=== PATIENT | female | born 1990 | race Asian ===

== ENCOUNTER → 2021-03-01 09:31 | Outpatient (CLI) | payer OTHER, SELFPAY ==
--- NOTE | 2021-03-01 09:34 | DI.US.S_ITS ---
PROCEDURE: US OB <= 14 WEEKS FETUS INDICATIONS: INITIAL VIABILITY DATING OUTSIDE/PRIOR DATING DATA: Last menstrual period (LMP): December 29, 2020. LMP-based estimated date of delivery (LELIA): October 05, 2021. First dating scan (date): March 01, 2021. Estimated date of delivery (LELIA) from first dating scan: October 10, 2021. The calculations are made using the ultrasound LELIA of October 10, 2021. TECHNIQUE: Real-time scanning was performed of the fetus and maternal pelvic organs, with image documentation. Endovaginal scanning was also performed to better visualize the fetus and maternal ovaries. COMPARISON: None. FINDINGS: Embryo: Mean crown-rump length measures 1.65 cm, compatible with an 8 week, 1 day gestation Heart rate: 171 beats per minute. Maternal organs: Ovaries within normal limits. A thick-walled lesion is seen within the right ovary, likely reflecting a corpus luteum. IMPRESSION: Single live intrauterine gestation as detailed above. We strive to produce accurate, complete, and clear reports of imaging services. To assist us in improving patient care, this report was composed using standard report templates and voice recognition software. Therefore, it may contain abnormal punctuation, insertions and/or omissions. Occasional wrong-word or sound-alike substitutions may occur. Though we review the report and make efforts to correct it, we do recommend that the report be read carefully in proper context to recognize any text inaccuracies. Dictated by: Rick Gastelum M.D. on 03/01/2021 at 10:37 Approved by: Rick Gastelum M.D. on 03/01/2021 at 10:44
[2021-03-01 12:10] LABS: Add Manual Diff / Slide Review NO; Basophils Absolute Auto 0 /uL (0-100); Basophils Percent Auto 0.3 % (0-2); Eosinophils Absolute Auto 0 /uL (0-450); Eosinophils Percent Auto 0.3 % (2-4); Hematocrit 34.8 % (36-46); Lymphocytes Absolute Auto 1400 /uL (1100-4500); Mean Corpuscular HGB Conc 34.6 % (30-36); Mean Corpuscular Hemoglobin 30.9 PG (26-34); Mean Corpuscular Volume 89.4 fL (80-100); Monocytes Absolute Auto 600 /uL (0-900); Neutrophils Absolute Auto 6800 /uL (1500-7000); Neutrophils Percent Auto 76.4 % (50-75); Platelet Count 333 X10^3/uL (150-400); Red Blood Cell Count 3.89 X10^6/uL (4.0-5.2); Red Cell Distribution Width 12.6 % (11.6-14.8); White Blood Cell Count 8.9 X10^3/uL (4.5-11.0)
[2021-03-01 12:14] LABS: Appearance Urine UA CLEAR; Bilirubin Urine UA NEGATIVE (NEGATIVE); Color Urine UA YELLOW; Glucose Urine UA NEGATIVE (Negative); Ketones Urine UA NEGATIVE (NEGATIVE); Leukocyte Esterase Urine UA NEGATIVE (NEGATIVE); Nitrite Urine UA NEGATIVE (Negative); Occult Blood Urine UA TRACE-LYSED (Negative); Protein Urine UA NEGATIVE (Negative); Specific Gravity Urine UA 1.015 (1.000-1.035); Urobilinogen Urine UA 0.2 E.U./dL (0.2)
[2021-03-01 13:01] LABS: Hemoglobin A1C% w Est Avg Glu 5.4 % (4.0-6.0)
[2021-03-02 09:06] LABS: RPR Screen Non Reactive (Non Reactive)
[2021-03-02 11:57] LABS: Varicella IgG Antibody <135 index (Immune >165)
[2021-03-02 17:28] LABS: HIV 1 & 2 Ab/Ag 4th Gen Combo NEGATIVE (NEGATIVE); Hep C Virus Ab w/Reflex Quant NEGATIVE s/c (NEGATIVE); Hepatitis B Surface Antigen NEGATIVE s/c (NEGATIVE); Rubella Antibody IgG 55.6 IU/mL (>15)
== END ==
PROVIDERS: Referring Provider Obstetrics & Gynecology; Visit Provider Obstetrics & Gynecology
DX: Z34.81 Encounter for supervision of other normal pregnancy, first trimester (principal); Z3A.08 8 weeks gestation of pregnancy
CPT/HCPCS: 36415; 76801; 76817; 80055; 81003; 83036; 86787; 86803; 86850; 86900; 86901; 87086; 87389

== ENCOUNTER → 2021-04-25 16:35 | Outpatient (CLI) | payer BC, SELFPAY ==
[2021-04-27 20:22] LABS: Estriol, Free 1.06 ng/mL (.); Inhibin A, Dimeric 167.69 pg/mL (.); Inhibin A, MoM 1.02 (.); Maternal Ethnicity Other (.); Maternal Weight 140 lbs (.); Number of Fetuses No (.); OSBR Risk 1 IN 5251 (.); Results Report (.); Test Results *Screen Negative* (.); hCG, MoM 1.56 (.); hCG, Serum 58677 mIU/mL (.)
== END ==
PROVIDERS: Referring Provider Obstetrics & Gynecology; Visit Provider Obstetrics & Gynecology
DX: Z34.82 Encounter for supervision of other normal pregnancy, second trimester (principal); Z3A.16 16 weeks gestation of pregnancy
CPT/HCPCS: 36415; 82105; 82677; 84702; 86336

== ENCOUNTER → 2021-05-25 14:03 | Outpatient (CLI) | payer BC, SELFPAY ==
--- NOTE | 2021-05-25 14:05 | DI.US.S_ITS ---
PROCEDURE: US OB >= 14 WEEKS FETUS INDICATIONS: ANATOMY SCAN OUTSIDE/PRIOR DATING DATA: Last menstrual period (LMP): 12/29/2020. LMP-based estimated date of delivery (LELIA): 10/05/2021. First dating scan (date and location): 03/01/2021 at . Estimated date of delivery (LELIA) from first dating scan: 10/10/2021. The calculations are made using the ultrasound LELIA of 10/10/2021. TECHNIQUE: Real-time scanning was performed of the fetus, with image documentation and biometric measurements. Endovaginal scanning: Not performed COMPARISON: None. FINDINGS: General: A single living intrauterine gestation is present. Presentation: Variable. Placenta: Placental position is posterior , without previa. Amniotic fluid index: 12.9 cm, normal range is 5-24 cm. Single deepest vertical pocket is 4.5 cm. heart rate: 158 beats per minute. Maternal cervical canal: 4.7 cm long. Normal lower limit is 2.5 cm. biometrics: Biparietal diameter: 19 weeks 6 days. Head circumference: 20 weeks 2 days Abdominal circumference: 20 weeks 4 days Femur length: 20 weeks 0 day Clinically estimated gestational age: 20 weeks 2 days Composite gestational age from present scan: 20 weeks 1 day Estimated weight and percentile: 344 gm; 45% Anatomic survey: Neuro: Ventricles are non-dilated at less than 10 mm. Cisterna magna is normal at 3-11 mm. Cerebellum is normal in size and morphology. Nuchal skin fold: Normal at less than 6 mm between 14-21 weeks gestational age. Face: Nose and lips, facial profile are normal. Spine: No evidence for spina bifida. Heart: 4-chambered heart is present, with normal ventricular outflow tracts. Echogenic focus in the left ventricle. Diaphragm: Diaphragm is intact. Stomach: Left-sided stomach is present. Kidneys: No hydronephrosis. Normal is less than 5 mm in 2nd trimester, less than 7 mm in 3rd trimester. Cord: 3-vessel cord has orthotopic insertion. Bladder: Normal in size. Extremities: All 4 extremities identified. IMPRESSION: 1. A single living intrauterine gestation with appropriate interval growth. 2. Echogenic focus in left ventricle. As an isolated finding, it is likely of no clinical significance. Please correlate with other clinical information. 3. Otherwise normal anatomic survey. We strive to produce accurate, complete, and clear reports of imaging services. To assist us in improving patient care, this report was composed using standard report templates and voice recognition software. Therefore, it may contain abnormal punctuation, insertions and/or omissions. Occasional wrong-word or sound-alike substitutions may occur. Though we review the report and make efforts to correct it, we do recommend that the report be read carefully in proper context to recognize any text inaccuracies. Dictated by: Mariano Mack M.D. on 05/25/2021 at 17:38 Approved by: Mariano Mack M.D. on 05/25/2021 at 17:42
== END ==
PROVIDERS: Referring Provider Obstetrics & Gynecology; Visit Provider Obstetrics & Gynecology
DX: Z34.82 Encounter for supervision of other normal pregnancy, second trimester (principal); Z3A.20 20 weeks gestation of pregnancy
CPT/HCPCS: 76811; 87491; 87591

== ENCOUNTER → 2021-05-25 16:56 | Outpatient (CLI) | payer BC, SELFPAY ==
[2021-05-25 21:22] LABS: Urine N gonorrhoeae NOT DETECTED
[2021-05-25 22:39] LABS: Urine Chlamydia NOT DETECTED
== END ==
PROVIDERS: Visit Provider Obstetrics & Gynecology
DX: Z34.82 Encounter for supervision of other normal pregnancy, second trimester (principal); Z3A.20 20 weeks gestation of pregnancy
CPT/HCPCS: 87491; 87591

== ENCOUNTER → 2021-06-22 16:23 | Outpatient (CLI) | payer BC, SELFPAY ==
[2021-06-22 17:50] LABS: Hematocrit 30.4 % (36-46); Hemoglobin 10.6 g/dL (12.0-16.0)
[2021-06-22 18:06] LABS: GTT (PREG) 1 Hour PP 50gm Dose 183 mg/dL (76-139)
== END ==
PROVIDERS: Referring Provider Obstetrics & Gynecology; Visit Provider Obstetrics & Gynecology
DX: Z34.82 Encounter for supervision of other normal pregnancy, second trimester (principal); Z3A.26 26 weeks gestation of pregnancy
CPT/HCPCS: 36415; 82950; 85014; 85018

== ENCOUNTER → 2021-07-03 09:59 | Outpatient (CLI) | payer BC, SELFPAY ==
[2021-07-03 11:07] LABS: Glucose Fasting Gestational 101 mg/dL (76-95)
[2021-07-03 12:40] LABS: Glucose 1 Hour Gest 258 mg/dL (76-180)
[2021-07-03 13:30] LABS: Glucose Tol Interp,Gestational INTERPRETATION
[2021-07-03 14:35] LABS: Glucose 3 Hour Gest 165 mg/dL (76-140)
[2021-07-03 14:39] LABS: Glucose 2 Hour Gest 170 mg/dL (76-155)
== END ==
PROVIDERS: Referring Provider Obstetrics & Gynecology; Visit Provider Obstetrics & Gynecology
DX: O99.810 Abnormal glucose complicating pregnancy (principal); Z3A.24 24 weeks gestation of pregnancy
CPT/HCPCS: 36415; 82951; 82952

== ENCOUNTER 2021-08-16 03:24 | Observation (INO) | payer BC, SELFPAY ==
[2021-08-16] MEDS: LACTATED RINGERS 1,000 ML 1000 ML IV ×2 (04:19→05:41)
[2021-08-16 04:37] LABS: Add Manual Diff / Slide Review NO; Basophils Absolute Auto 0 /uL (0-100); Basophils Percent Auto 0.3 % (0-2); Eosinophils Absolute Auto 0 /uL (0-450); Eosinophils Percent Auto 0.4 % (2-4); Hematocrit 29.2 % (36-46); Hemoglobin 10.1 g/dL (12.0-16.0); Lymphocytes Absolute Auto 700 /uL (1100-4500); Mean Corpuscular HGB Conc 34.6 % (30-36); Mean Corpuscular Hemoglobin 31.6 PG (26-34); Mean Corpuscular Volume 91.3 fL (80-100); Monocytes Absolute Auto 900 /uL (0-900); Monocytes Percent Auto 10.9 % (3-14); Neutrophils Absolute Auto 6600 /uL (1500-7000); Neutrophils Percent Auto 80.4 % (50-75); Platelet Count 232 X10^3/uL (150-400); Red Cell Distribution Width 12.9 % (11.6-14.8); White Blood Cell Count 8.2 X10^3/uL (4.5-11.0)
[2021-08-16 05:18] LABS: COVID19 -Nasal RAPID Negative (Negative)
[2021-08-16] MEDS: NIFEdipine 10 MG CAPSULE PO ×3 (06:11→06:55)
[2021-08-18 10:23] LABS: Strep Grp B PCR NEG for Grp B Strep
== END 2021-08-16 08:03 | disposition home or self-care (01) ==
PROVIDERS: Admitting Provider Obstetrics & Gynecology; Referring Provider Obstetrics & Gynecology; Visit Provider Obstetrics & Gynecology
DX: O47.03 False labor before 37 completed weeks of gestation, third trimester (principal); O24.419 Gestational diabetes mellitus in pregnancy, unspecified control; Z3A.32 32 weeks gestation of pregnancy; Z20.822 Contact with and (suspected) exposure to COVID-19
CPT/HCPCS: 59025; 59050; 85025; 87086; 87635; 87653; 96360; C9803; G0378; G0379

== ENCOUNTER → 2021-08-18 13:57 | Outpatient (CLI) | payer BC, SELFPAY ==
--- NOTE | 2021-08-18 17:10 | DIAB.GDA ---
Initial Gestational Diabetes Assessment Name: Karen Briscoe V Date: 08/18/21 Time: 2-310p Dx: Gestational Diabetes Provider: Loretta LELIA: 10/10/21 Weeks: 32 Karen presents for initial visit with her spouse, Arminda.+FH of DM with father and PMH of PCOS and prediabetes. HgA1c in February 5.4% (WNL). Endorses previous visit with Sarah MOBLEY/LOCO for PDM. Finds diet changes difficult primarily due to difficulty reducing rice consumption. Palestinian culture and often consumes 2c rice at each meal. Currently taking Metformin 500mg BID. Very worried about potential for insulin. States she does not want to take insulin and then have to cont taking . has questions today about impact of GDM on baby and risk of DM for baby. Endorses limited knowledge about what GDM is. Reports recent IV hydration in ED due to inadequate fluid intake recently. RD cannot find this event in EMR. Has been working on fluid intake since. Diet Recall: wake 730a ; sleep 11p-12a waiting 2 hr after iron supplement to eat in the morning 1130a: 2c rice, meat +/- coffee with vanilla creamer 3p: mac and cheese and crackers 7p: 2c rice, meat/fish, veggies Beverages: 80oz water, coconut water (24g CHO), 12oz gatorade (22g CHO) Anthropometrics: Ht: 5' Wt: 159# last OB visit Prepregnancy wt: 140# Physical Activity: No program Self-Monitoring Blood Glucose: Checking 4 x per day: FBG, pre 3p mini meal, and 2 hr pc dinner. Denies any hyperglycemia currently. Did not bring SMB[facility] records to appt. Diabetes Medications: Metformin 500mg BID Pertinent Labs: screen 183 H ; OGTT: 101H, 258 H, 170 H, 165 H Nutrition Rx: Carbohydrates: Daily: 180g Meal: 45-60g lunch and dinner; 30-45g breakfast Snack: 15-30g Nutrition Diagnosis: Altered nutrition related lab value r/t GDM dx aeb recent OGTT Excessive CHO intake r/t nutrition knowledge deficit aeb diet recall of 90g CHO at meals and beverage choices Physical inactivity r/t worries about safety with exercising while aeb pt report Intervention: This participant was very receptive. Provided appropriate educational handouts. Discussed the following topics: GDM pathophysiology and impact of hyperglycemia on mom and baby Risk for T2DM for mom and baby in the future Ways to reduce risk T2DM HgA1c Plate Method, meal timing, carb counting, pairing macronutrients and spreading out CHO for better BG management Blood glucose goals (FBG: <95 and 2 hour <120 mg/dL); importance of checking 4x per day (FBG and pc) Impact of macronutrients on blood glucose Recommended servings for carbohydrates at meals and snacks Brainstormed appropriate meal plan based on her food preferences Discussed medication management: some women need insulin during but not Role of physical activity and following provider guidelines for safety-- enc her to discuss further with OB if she is worried, but generally 30 mins activity is recc Goals: Avoid sugar sweetened beverages Switch to SF creamer Check BG 2 hours after 3pm meal Measure rice portion Follow-up: RADHA ADAN follow-up in one week for BG and goal check-in after OB appt. States she feels the changes discussed today are not overwhelming and seems motivated to make lifestyle changes. Roma Mann RDN, [facility] Certified Diabetes Care and Merchandise Clerk T: [phone] F: [phone] [email or web address] Thank you for this referral
== END ==
PROVIDERS: Referring Provider Obstetrics & Gynecology; Visit Provider Obstetrics & Gynecology
DX: O24.415 Gestational diabetes mellitus in pregnancy, controlled by oral hypoglycemic drugs (principal); Z3A.32 32 weeks gestation of pregnancy; Z71.3 Dietary counseling and surveillance
CPT/HCPCS: 97802

== ENCOUNTER → 2021-08-24 16:46 | Outpatient (CLI) | payer BC, SELFPAY ==
--- NOTE | 2021-08-24 17:54 | DIAB.GDFU ---
Follow-up Gestational Diabetes Assessment Name: Karen Briscoe V Date: 08/24/21 Time: 5-515pp Dx: Gestational Diabetes Provider: Loretta LELIA: 10/10/21 Karen presents with spouse for follow-up regarding GDM dx. States she has reduced rice to 1c, cut out sugar beverages, and has been having mostly in goal BG. Some elevations at evening meal, which seem r/t candy or fruit immediately after dinner. 3 eating occurrences per day. Endorses feeling hungry. Did encourage small freq meals. Added morning snack as recommended last visit. Overall, doing very well with nutrition changes. Anthropometrics: Ht: 5' Wt: 159# last OB visit Prepregnancy wt: 140# Physical Activity: No program Self-Monitoring Blood Glucose: 03/31 elevated FBG. 05/01 elevated pc lunch. 08/28 elevated pc dinner. Late morning meals when she was not working last week resulted in some days only 2 pc readings. Checked after 3p meal/snack: 113, 109, 121 H. Date Pre Post Pre Post Pre Post HS 08/18 89 106 147 08/19 89 102 158 08/20 86 92 129 08/21 92 110 138 08/22 86 110 125 137 08/23 90 106 130 125 08/24 98 111 120 Diabetes Medications: Metformin 500mg BID Pertinent Labs: screen 183 H ; OGTT: 101H, 258 H, 170 H, 165 H Nutrition Rx: Carbohydrates: Daily: 180g Meal: 45-60g lunch and dinner; 30-45g breakfast Snack: 15-30g Nutrition Diagnosis: Altered nutrition related lab value r/t GDM dx aeb recent OGTT Excessive CHO intake r/t nutrition knowledge deficit aeb diet recall of 90g CHO at meals and beverage choices- improved Physical inactivity r/t worries about safety with exercising while aeb pt report - no change Intervention: This participant was very receptive. Provided appropriate educational handouts. Discussed the following topics: Recent blood sugar results and impact of food intake, especially at dinner. Enc spacing out fruit after dinner Reviewed benefits to walking safely after a meal Goals: Avoid sugar sweetened beverages- met Switch to SF creamer- met Check BG 2 hours after 3pm meal- met Measure rice portion - met Avoid sweets at dinner- new Follow-up: RADHA ADAN follow-up in two weeks for discussion and BG check- in Roma Lungren, RDN, [facility] Certified Diabetes Care and Plastic Bubble Packer T: [phone] F: [phone] [email or web address] Thank you for this referral
== END ==
PROVIDERS: Referring Provider Obstetrics & Gynecology; Visit Provider Obstetrics & Gynecology
DX: O24.415 Gestational diabetes mellitus in pregnancy, controlled by oral hypoglycemic drugs (principal); Z71.3 Dietary counseling and surveillance
CPT/HCPCS: 97803

== ENCOUNTER 2021-08-24 17:19 | Outpatient (CLI) | payer BC, SELFPAY | END 2021-08-24 18:20 | disposition home or self-care (01) | LOC: LABOR 17:27 → OB 08-25 11:37 | PROVIDERS: PCP Obstetrics & Gynecology; Referring Provider Obstetrics & Gynecology; Visit Provider Obstetrics & Gynecology | DX: O24.415 Gestational diabetes mellitus in pregnancy, controlled by oral hypoglycemic drugs (principal); Z3A.33 33 weeks gestation of pregnancy | CPT/HCPCS: 59025; G0378; G0379 ==

== ENCOUNTER 2021-08-30 15:55 | Outpatient (CLI) | payer BC, SELFPAY ==
--- NOTE | 2021-08-30 16:45 | P.TNLD_ITS ---
ON LICENSE OF [facility] Medical History (Updated 08/10/21 @ 15:22 by Isidra Prather PA-C) Gastroenteritis Keratosis pilaris (~2017) PCOS (polycystic ovarian syndrome) (~2017) Pre-diabetes (~2017) Surgical History (Updated 04/23/21 @ 15:49 by Karla Burgos MD) Anesthesia delivery delivered (~2012) No significant past surgical history Family History (Updated 04/02/21 @ 20:51 by Selena Roper) Father Diabetes mellitus Hypertension Social History marital status: number of children: 1 household members: spouse lives independently: Yes caregiver/support person: No housing: apartment pets and animals: No education level: college occupational status: employed ([employer]ishing [employer]. ) current occupational exposures/hazards: No vel/temple: [employer] special vel needs: No seatbelt use: always do you feel safe at home: Yes Smoking Status: Never smoker second hand exposure: No alcohol intake: former (Rare/occasional.) substance use type: does not use during the past year weight has: remained stable well-balanced diet: rarely or never (Encouraged online nutrition class 04/18, referral to nutrition if she would like. ) daily servings fruits/ve-4 caffeine: No Type(s) of exercise: walking (at workplace, busy, always standing/active.) and normal ROM and activity frequency: 5-6 times per week Evaluation Evaluation Baseline heart rate: 130 Variability: Moderate (11-25) monitor accelerations: Present Monitor Decelerations: Absent Category of Tracing: Reactive Status: Category l
== END 2021-08-30 17:30 | disposition home or self-care (01) ==
LOC: OB 09-04 10:49
PROVIDERS: PCP Obstetrics & Gynecology; Referring Provider Obstetrics & Gynecology; Visit Provider Obstetrics & Gynecology
DX: O24.415 Gestational diabetes mellitus in pregnancy, controlled by oral hypoglycemic drugs (principal); Z3A.34 34 weeks gestation of pregnancy
CPT/HCPCS: 59025; 76815; G0378; G0379

== ENCOUNTER 2021-09-06 17:15 | Outpatient (CLI) | payer BC, SELFPAY | END 2021-09-06 18:00 | disposition home or self-care (01) | LOC: LABOR 18:00 → OB 09-07 09:32 | PROVIDERS: PCP Obstetrics & Gynecology; Referring Provider Obstetrics & Gynecology; Visit Provider Obstetrics & Gynecology | DX: O24.415 Gestational diabetes mellitus in pregnancy, controlled by oral hypoglycemic drugs (principal); Z3A.35 35 weeks gestation of pregnancy | CPT/HCPCS: 59025; G0378; G0379 ==

== ENCOUNTER → 2021-09-12 16:17 | Outpatient (CLI) | payer BC, SELFPAY ==
--- NOTE | 2021-09-12 16:20 | DIAB.GDFU ---
Follow-up Gestational Diabetes Assessment Name: Karen Briscoe V Date: 09/06/21 Time: 445-5p Dx: Gestational Diabetes Provider: Loretta LELIA: 10/10/21 Karen presents with for GDM follow-up. Most BG cont in goal. Reports continued management of CHO portions, especially rice. Some elevations after a few meals indicative are larger portions. Here today for quick BG check, diet questions, and recs. Anthropometrics: Ht: 5' Wt: 160# today Prepregnancy wt: 140# Physical Activity: No program Self-Monitoring Blood Glucose: 1/7 elevated FBG, no pc breakfast elevations, 2/7 elevated pc lunch, 4/7 elevations pc dinner r/t carb portions. Date Pre Post Pre Post Pre Post HS 08/29 86 107 125 120 08/30 88 109 120 118 08/31 92 116 126 136 09/01 83 102 111 140 09/02 96 113 121 129 09/03 94 115 119 119 09/04 87 118 124 131 Diabetes Medications: Metformin 500mg BID Pertinent Labs: screen 183 H ; OGTT: 101H, 258 H, 170 H, 165 H Nutrition Rx: Carbohydrates: Daily: 180g Meal: 45-60g lunch and dinner; 30-45g breakfast Snack: 15-30g Nutrition Diagnosis: Altered nutrition related lab value r/t GDM dx aeb recent OGTT Excessive CHO intake r/t dinner portions aeb BG >120 and pt report- new Physical inactivity r/t worries about safety with exercising while aeb pt report - no change Intervention: This participant was very receptive. Provided appropriate educational handouts. Discussed the following topics: Recent blood sugar results and impact of food and hormones Review of macronutrient recommendations during Benefits, resources, and nutrition for recommendations for nutrition and physical activity recommendations for T2DM risk reduction OGTT at 6-12 weeks Checking blood sugars twice per week (goal: fasting <100 mg/dL and 2 hour pc <140 mg/dL) until 6 week check-up HgA1c q 1-3 years. Goals: Avoid sweets at dinner- in progress Follow-up: RADHA ADAN follow-up prn Roma Mann, RADHA, [facility] Certified Diabetes Care and Automotive Worker Foreman T: [phone] F: [phone] Thank you for this referral
== END ==
PROVIDERS: PCP Obstetrics & Gynecology; Referring Provider Obstetrics & Gynecology; Visit Provider Obstetrics & Gynecology
DX: O24.415 Gestational diabetes mellitus in pregnancy, controlled by oral hypoglycemic drugs (principal); Z71.3 Dietary counseling and surveillance
CPT/HCPCS: 97803

== ENCOUNTER 2021-09-13 15:17 | Outpatient (CLI) | payer BC, SELFPAY | END 2021-09-13 16:15 | disposition home or self-care (01) | LOC: OB 09-15 07:23 | PROVIDERS: PCP Obstetrics & Gynecology; Referring Provider Obstetrics & Gynecology; Visit Provider Obstetrics & Gynecology | DX: O24.415 Gestational diabetes mellitus in pregnancy, controlled by oral hypoglycemic drugs (principal); Z3A.36 36 weeks gestation of pregnancy | CPT/HCPCS: 59025; 87653; G0378; G0379 ==

== ENCOUNTER → 2021-09-13 18:01 | Outpatient (CLI) | payer BC, SELFPAY ==
[2021-09-15 14:52] LABS: Strep Grp B PCR NEG for Grp B Strep
== END ==
PROVIDERS: PCP Obstetrics & Gynecology; Visit Provider Obstetrics & Gynecology
DX: Z34.83 Encounter for supervision of other normal pregnancy, third trimester (principal); Z3A.36 36 weeks gestation of pregnancy
CPT/HCPCS: 87653

== ENCOUNTER 2021-09-22 10:19 | Outpatient (CLI) | payer BC, SELFPAY | END 2021-09-22 11:00 | disposition home or self-care (01) | LOC: LABOR 11:09 → OB 09-26 08:35 | PROVIDERS: Referring Provider Obstetrics & Gynecology; Visit Provider Obstetrics & Gynecology | DX: O24.415 Gestational diabetes mellitus in pregnancy, controlled by oral hypoglycemic drugs (principal); Z3A.37 37 weeks gestation of pregnancy | CPT/HCPCS: 59025; G0378; G0379 ==

== ENCOUNTER 2021-09-29 12:33 | Outpatient (CLI) | payer BC, SELFPAY | END 2021-09-29 13:18 | disposition home or self-care (01) | LOC: LABOR 12:54 → OB 10-02 16:27 | PROVIDERS: Referring Provider Obstetrics & Gynecology; Visit Provider Obstetrics & Gynecology | DX: O24.415 Gestational diabetes mellitus in pregnancy, controlled by oral hypoglycemic drugs (principal); Z3A.38 38 weeks gestation of pregnancy | CPT/HCPCS: 59025; G0378; G0379 ==

== ENCOUNTER 2021-10-03 20:10 | Observation (INO) | payer BC, SELFPAY | END 2021-10-03 21:36 | disposition home or self-care (01) | LOC: LABOR 20:13 | PROVIDERS: Admitting Provider Obstetrics & Gynecology; PCP Obstetrics & Gynecology; Referring Provider Obstetrics & Gynecology; Visit Provider Obstetrics & Gynecology | DX: Z34.83 Encounter for supervision of other normal pregnancy, third trimester (principal); Z3A.39 39 weeks gestation of pregnancy | CPT/HCPCS: 59025; 59050; G0378; G0379 ==

== ENCOUNTER 2021-10-04 05:17 | Inpatient (IN) | payer BC, SELFPAY ==
[2021-10-04 05:59] VITALS: BP 104/55
[2021-10-04] MEDS: LACTATED RINGERS 1,000 ML 100 ML IV ×4 (06:37→22:13)
[2021-10-04 06:45] LABS: Add Manual Diff / Slide Review NO; Basophils Absolute Auto 0 /uL (0-100); Basophils Percent Auto 0.3 % (0-2); Eosinophils Absolute Auto 0 /uL (0-450); Eosinophils Percent Auto 0.6 % (2-4); Hematocrit 32.5 % (36-46); Hemoglobin 10.9 g/dL (12.0-16.0); Lymphocytes Absolute Auto 1600 /uL (1100-4500); Lymphocytes Percent Auto 19.1 % (25-40); Mean Corpuscular HGB Conc 33.7 % (30-36); Mean Corpuscular Hemoglobin 29.5 PG (26-34); Mean Corpuscular Volume 87.8 fL (80-100); Monocytes Absolute Auto 800 /uL (0-900); Neutrophils Absolute Auto 6000 /uL (1500-7000); Platelet Count 346 X10^3/uL (150-400); Red Cell Distribution Width 14.1 % (11.6-14.8); White Blood Cell Count 8.5 X10^3/uL (4.5-11.0)
[2021-10-04 06:59] LABS: COVID19 -Nasal RAPID Negative (Negative)
--- NOTE | 2021-10-04 07:03 | P.HPOB_ITS ---
OB HPI Date/Time Date of admission: 10/04/21 Date Patient Seen: 10/04/21 Time Patient Seen: 07:03 History of Present Condition Chief complaint: labor LELIA Calculator Estimated Delivery Date Method Current WG Current Estimate 10/10/21 Ultrasound #1 39w 1d Other Estimates 10/05/21 LMP (Certain) 39w 6d Estimated Gestational Age (weeks): 39+1 : 2 Para: 1 care: good care, initiated at week # (12), number of visits (12) and pounds weight gain (20) Dating criteria OB: LMP confirmed by 1st trimester US Ultrasounds: normal 1st trimester US and normal mid trimester US Obstetrical complications: gestational diabetes (On metformin) Medical complications OB: none Indications Operative indications ( section): previous uterine surgery Preadmission Labs Last OB Lab Results: Blood Type O Positive 03/01/21 11:05 Antibody Screen Negative 03/01/21 11:05 Hematocrit 32.5 % (36-46) L 10/04/21 06:30 Hemoglobin 10.9 g/dL (12.0-16.0) L 10/04/21 06:30 Hepatitis B Surface Antigen Negative s/c (NEGATIVE) 03/01/21 11 :05 Hepatitis C Antibody Negative s/c (NEGATIVE) 03/01/21 11:05 Rubella Antibody 55.6 IU/mL (>15) 03/01/21 11:05 Varicella-Zoster IgG Antibody <135 index (Immune >165) L 11:05 Glucose 1 Hour 183 mg/dL (76-139) H 06/22/21 17:28 Group B Streptococcus (PCR) Neg for grp b strep 09/13/21 18:01 Glucose Tolerance Testing: Fasting (101), 1 hr (258), 2 hr (170) and 3 hr (165) -: Chlamydia screen: negative, Gonorrhea screen: negative and Urine: negative -: PAP smear: Normal Genetic Screens: Quad screen: Normal External Labs -: Urine: negative Prior (ies) Past Pregnancies Del. Date GA/Weeks Labor Lgth Wt Sex Route Outcome Anesthesia Place Delv Breastfeed Preg Comp Name 08/25/12 38 6 Female live - full term spinal [place] 6 mos failure to progress other Destini Briscoe Delivery Date: 08/25/12 Last Updated by: Rosey Nayak R.N. Prolonged ROM without descent; pt requested C/S. Evaluation Evaluation Baseline heart rate: 140 Variability: Moderate (11-25) monitor accelerations: Present Monitor Decelerations: Absent Contraction Frequency (minutes): 4 Uterine Contraction Intensity: Moderate Status: Category l PFS Medical History (Updated 09/03/21 @ 20:10 by Karla Burgos MD) Gastroenteritis Keratosis pilaris (~2017) PCOS (polycystic ovarian syndrome) (~2017) Pre-diabetes (~2017) Surgical History (Updated 04/23/21 @ 15:49 by Karla Burgos MD) Anesthesia delivery delivered (~2012) No significant past surgical history Family History (Updated 04/02/21 @ 20:51 by Selena Roper) Father Diabetes mellitus Hypertension Social History marital status: number of children: 1 household members: spouse lives independently: Yes caregiver/support person: No housing: apartment pets and animals: No education level: college occupational status: employed current occupational exposures/hazards: No vel/episcopalian: [employer] special vel needs: No seatbelt use: always do you feel safe at home: Yes Smoking Status: Never smoker second hand exposure: No alcohol intake: former substance use type: does not use during the past year weight has: remained stable well-balanced diet: rarely or never daily servings fruits/ve-4 caffeine: No Type(s) of exercise: walking and normal ROM and activity frequency: 5-6 times per week Meds Home Medications and Allergies Home Medications Medication Instructions Recorded Confirmed Type ferrous sulfate 142 mg (45 mg 142 mg PO DAILY 03/23/21 10/04/21 History iron) tablet,extended release (Slow Release Iron) prenat.vits,jarad,rxd-fwxy-trail 1 tab PO DAILY 03/23/21 10/04/21 History blood sugar diagnostic (Blood #120 ea 07/05/21 09/29/21 Rx Glucose Test strips) blood-glucose meter (Blood Glucose #1 ea 07/05/21 09/29/21 Rx Monitoring kit) lancets #120 ea 07/05/21 09/29/21 Rx metformin 500 mg tablet 500 mg PO BID #60 tabs 09/06/21 10/04/21 Rx Allergies Allergy/AdvReac Type Severity Reaction Status Date / Time No Known Drug Allergies Allergy Verified 09/29/21 12:12 OB Exam Narrative Exam Narrative: Generally: Patient is sitting up in bed, mildly uncomfortable Lungs: Clear to auscultation bilaterally Cardiovascular: Regular rate and rhythm Fundal height: 39 cm Estimated weight: 8 lb Extremities: Trace edema Objective Labs Result Diagrams: 10/04/21 06:30 Labs: Laboratory Results - last 24 hr 10/04/21 10/04/21 06:30 06:30 WBC 8.5 RBC 3.70 L Hgb 10.9 L Hct 32.5 L MCV 87.8 MCH 29.5 MCHC 33.7 RDW 14.1 Plt Count 346 Neut % (Auto) 71.0 Lymph % (Auto) 19.1 L [place] % (Auto) 9.0 Eos % (Auto) 0.6 L Baso % (Auto) 0.3 Neut # (Auto) 6000 Lymph # (Auto) 1600 [place] # (Auto) 800 Eos # (Auto) 0 Baso # (Auto) 0 SARS-CoV-2 (PCR) Negative Assessment and Plan Assessment and Plan Assessment and Plan narrative: Assessment: 31-year-old 2 para 1 at 39-,1/7 weeks gestation with a previous section Patient is in active labor Plan: Repeat low-transverse section Time Spent with Patient Total time spent with greater than 50% in coordination of care (as documented) at patient's floor/unit and/or counseling patient:: 15-24 minutes
--- NOTE | 2021-10-04 07:12 | PM.PREOP ---
Pre-operative Note COVID-19 COVID-19 status: Negative Result date/Date tested (Pos, Neg/Pending): 10/04/21 Criteria for continued procedure: Non-surgical alternatives not available or appropriate per current SOC Interval Note History & Physical reviewed/Exam performed by Physician: Yes Changes to H&P: No H&P completed within 30 days and has changed as indicated here:: 10/04/21
[2021-10-04] MEDS: CEFAZOLIN 2 GM/20 ML SYRINGE IV (07:20)
--- NOTE | 2021-10-04 07:46 | SUR.OPER ---
TOB live male 0745. Placenta and cord blood to OB With OB Rn
--- NOTE | 2021-10-04 07:51 | SUR.OPER ---
Supine on Padded OR bed, head on pillow, safety belt at thigh, arms secured on padded arm boards at <90 degrees abduction. Bump under right buttock. Legs uncrossed with pillow under knees, gel pad to heels, tape over blanket to lower legs.
[2021-10-04 08:30] VITALS: BP 117/49; PULSE 75; RESP 20; TEMP 36.6; O2SAT 100
[2021-10-04 08:35] VITALS: BP 99/49; PULSE 74; RESP 16; O2SAT 100
--- NOTE | 2021-10-04 08:35 | P.OP_ITS ---
Operative Date/Time/Diagnoses Date of procedure: 10/04/21 Time of procedure: 08:35 Pre-op diagnosis: 39 weeks gestation Previous C section Active labor Post-op diagnosis: same Procedure & Clinicians Procedure: Repeat low-transverse section Same procedure as scheduled: Yes Indications: 39 weeks gestation Previous section Active labor Surgeon: Karla Burgos Click Yes if Unassisted: Yes Anesthesia Type: Spinal (With Duramorph) Operative Notes Findings: Live male infant in the SAUL presentation Nuchal cord x1 Normal uterus, tubes, and ovaries Closure Type: primary Specimen(s): cord blood and placenta Intraoperative meds administered: Duramorph, Ketorolac and Pitocin Applied: Catheter (To continuous drainage) Estimated Blood Loss (mL): 500 Blood products transfused: none Procedure in detail: The patient was taken to the operating room where she was placed in the seated position. Spinal anesthesia with Duramorph was administered. The patient was then placed in the dorsal supine position with a leftward tilt. She was prepped and draped in the usual sterile fashion. A timeout was performed. After spinal analgesia was found to be adequate, a Pfannenstiel skin incision was made through the previous incision and carried through to the underlying layer fascia. The fascia was nicked in the midline, and the incision extended bilaterally with the Marcus scissors. The superior aspect of the fascial incision was grasped with a Vick clamps, elevated, and the underlying rectus muscles dissected off sharply and bluntly. Attention was then turned to the inferior aspect of this incision which in a similar fashion was grasped with a Machias clamps, elevated, and the underlying rectus muscles dissected off sharply and bluntly. The rectus muscles were in the midline. The peritoneum was identified, grasped between 2 hemostats, and entered sharply with the Metzenbaum scissors. This incision was extended superiorly and inferiorly with good visualization of the bladder. The bladder blade was inserted. The vesicouterine peritoneum was identified, grasped with the pickup, and entered sharply with the Metzenbaum scissors. This incision was extended bilaterally, and the bladder flap was created digitally. The bladder blade was reinserted. The lower uterine segment was incised in a transverse fashion with the scalpel. Upon entering the amniotic sac there was large amount of clear amniotic fluid. The infant's head was delivered with vacuum assistance. The nose and mouth were suctioned with bulb suction. The remainder of the body delivered without difficulty. The cord was double clamped and cut. The was handed off to waiting RN and RT. The placenta was delivered manually. The uterus was cleared of all clots and debris. The uterine incision was repaired with #1 chromic in a running interlocking fashion, and a second layer the same suture was used for an imbricating layer. Hemostasis was achieved. The tubes and ovaries were examined and were found to be normal. The gutters were cleared of all clots and debris. The bladder flap was reapproximated using 2-0 Vicryl in a running fashion. The parietal peritoneum was closed using 2-0 Vicryl in a running fashion. The fascia was reapproximated using 0 Vicryl in a running fashion. The subcutaneous layer was copiously irrigated with warm normal saline. 6 simple interrupted sutures of 3-0 Vicryl were placed to reapproximate the subcutaneous layer. The skin was closed with 4-0 Monocryl in a subcuticular fashion. Steri-Strips were placed. An Aquacel dressing was placed. The uterus was expressed of a small amount of old blood. Sponge, lap, and instrument counts were correct x-2. The patient tolerated the procedure well, and was taken to PACU in stable condition. Complications: none Baby 1: Infant Gender: Male Presentation: vertex Position: Left Occiput Anterior Placental Delivery Description: Spontaneous Cord Vessel Description: Nuchal Cord, Loose and Reduced score (1 min): 8 score (5 min): 9 weight: 7 lb 14.9 oz Post-operative Condition: stable Disposition: PACU Aftercare: routine postop
[2021-10-04 08:43] VITALS: BP 98/66; PULSE 70; RESP 16; TEMP 36.3; O2SAT 100
[2021-10-04] MEDS: KETOROLAC 30 MG/ML VIAL IV ×2 (14:15→22:12)
[2021-10-04] MEDS: OXYCODONE IR 5 MG TABLET PO ×2 (17:58→22:13)
[2021-10-04] MEDS: ACETAMINOPHEN 325 MG TABLET 650 MG PO (22:12)
[2021-10-05] MEDS: IBUPROFEN 600 MG TABLET PO ×3 (04:05→21:17)
[2021-10-05] MEDS: ACETAMINOPHEN 325 MG TABLET 650 MG PO ×3 (04:05→17:18)
[2021-10-05] MEDS: OXYCODONE IR 5 MG TABLET PO ×4 (04:06→21:17)
[2021-10-05 06:53] LABS: Hematocrit 26.9 % (36-46); Hemoglobin 9.2 g/dL (12.0-16.0)
[2021-10-05] MEDS: DOCUSATE 100 MG CAPSULE 200 MG PO (08:38)
[2021-10-05] MEDS: PRENATAL VIT,CALC/IRON/FOLIC 1 TABLET 1 TAB PO (08:38)
--- NOTE | 2021-10-05 18:58 | PM.OBPN.1 ---
Subjective - OB Subjective Patient comments: no complaints, pain well controlled and tolerating diet baby status: doing well and nursing well feeding status: exclusively breast feeding Date Patient Seen: 10/05/21 Time Patient Seen: 11:00 Interval history: Patient is a 31 year old postop day # 2 status post repeat low-transverse section. Tolerating a diet. The Pedro catheter was removed and she has been able to void spontaneously. going well. Bleeding tapering. Pain well controlled. Exam Vital Signs (past 8 hours): Oxygen Delivery Method Room Air Narrative Exam Narrative: Generally: Patient is sitting up in bed, holding infant, no acute distress Lungs: Clear to auscultation bilaterally Cardiovascular: Regular rate and rhythm Fundus: Firm at U -2 Incision: Clean dry and intact with Aquacel dressing Extremities: Negative Homans, trace edema Objective Labs Result Diagrams: 10/05/21 06:05 Labs: Laboratory Results - last 24 hr 10/05/21 06:05 Hgb 9.2 L Hct 26.9 L Assessment & Plan Plan day: 1 plan OB: routine postop care Comments: Anticipate discharge October 06, 2021 Time Spent With Patient Time: Total time spent is greater than 50% in coordination of care (as documented) at patient's floor/unit and/or counseling patient: Time with patient: 15-24 minutes
[2021-10-06] MEDS: ACETAMINOPHEN 325 MG TABLET 650 MG PO ×2 (00:08→05:47)
[2021-10-06] MEDS: OXYCODONE IR 5 MG TABLET PO ×2 (03:10→06:51)
[2021-10-06] MEDS: IBUPROFEN 600 MG TABLET PO ×2 (03:14→08:46)
[2021-10-06 08:05] VITALS: BP 102/66; PULSE 66; RESP 16; TEMP 36.9
[2021-10-06 08:46] VITALS: TEMP 36.8
[2021-10-06] MEDS: PRENATAL VIT,CALC/IRON/FOLIC 1 TABLET 1 TAB PO (08:46)
[2021-10-06] MEDS: DOCUSATE 100 MG CAPSULE 200 MG PO (08:48)
--- NOTE | 2021-10-09 06:34 | PM.OBDS.1 ---
Discharge Providers Provider Date of admission: 10/04/21 05:17 Discharge Date: 10/06/21 Primary care physician: Karla Burgos MD Consults: 10/04/21 08:47 Consult to Property Insurance Inspector Routine Comment: Discharge provider: Karla Burgos MD Summary Hospital Course Date Patient Seen: 10/06/21 Time Patient Seen: 07:45 Diagnoses: Thirty-nine weeks gestation Previous section Active labor Hospital Course: Patient is a 31-year-old 2 para 2 who presented on the morning of October 04, 2021 in active labor. She was scheduled for repeat section on October 05, 2021. She was at 39-,2/7 weeks gestation. She underwent a repeat low-transverse section without complication. Her course was unremarkable. On day # 1, her catheter was removed and she was able to void spontaneously. Her pain was well controlled. She tolerated a diet. She was ambulating independently. Nursing was going well. Bleeding was tapering. She was discharged home on postop day # 2. Peripartum Data Infant Delivery Method: Section (Repeat) Laceration Description: None Episiotomy description: None Procedures: Spinal anesthesia Repeat low-transverse section complications: none 1: Gender: Male Disposition of : home Status at Discharge Cognitive/behavioral status at discharge: oriented Functional status at discharge: independent ambulation Overall status at discharge: patient is progressing back to baseline Time Spent with Patient Time attestation: Total time spent providing and/or coordinating discharge services: Time spent: Less than 30 minutes Objective Labs Result Diagrams: 10/05/21 06:05 Exam Vital Signs (past 8 hours): Oxygen Delivery Method Room Air Narrative Exam Narrative: Generally: Patient is sitting up in bed, nursing infant, no acute distress Lungs: Clear to auscultation bilaterally Cardiovascular: Regular rate and rhythm Fundus: Firm at U -1 Incision: Clean dry and intact with Aquacel dressing Extremities: Trace edema, negative Homans Discharge Plan Discharge Plan Patient Disposition: Home Provider Discharge Comment: Call with fever, chills, redness or drainage around the incision, or bleeding vaginally more than a pad in an hour Ibuprofen 600 mg every 6 hours as needed Tylenol 650 mg every 6 hours as needed Discharge orders & Medications Prescriptions: New oxycodone 5 mg tablet 5 mg PO Q4H PRN (Reason: pain) Qty: 20 0RF Continued prenat.vits,jarad,[id number] Tablet 1 tab PO DAILY Discontinued Slow Release Iron 142 mg (45 mg iron) tablet extended release 142 mg PO DAILY metformin 500 mg tablet 500 mg PO BID Qty: 60 0RF No Action (DME) blood-glucose meter [Blood Glucose Monitoring] Kit See Rx Instructions .ROUTE .MEDSUPPLY Qty: 1 0RF Rx Instructions: To use with testing fasting and 2 hr PP blood sugars (DME) lancets Misc See Rx Instructions .ROUTE .MEDSUPPLY Qty: 120 3RF Rx Instructions: Testing blood sugars fasting and 2 hr PP (DME) Blood Glucose Test Strip See Rx Instructions .ROUTE .MEDSUPPLY Qty: 120 3RF Rx Instructions: Testing blood sugars fasting and 2 hr PP Follow up/Referrals: Karla Burgos MD [Primary Care Provider] - (Please follow up with Dr. Burgos on October 13 at 0945 CHECK IN AT 0930 . If you have any questions/concerns or need to reschedule please call . Nov 14 at 130 with CHECK IN AT 115) Diet/Activity/Treatments Diet: Regular Activity: No heavy lifting Skin/Wound/Dressing Care Report to your healthcare provider any signs of infection, such as:: chills, fever, increased pain, unusual drainage and unusual redness Dressing: Do not remove Visit Report/Discharge Packet Instructions: DI for , DI for and Nipple Soreness, DI for Prescription Opioid Use Stand Alone Forms: Discharge: Care Discharge Data Primary Care Provider: Karla Burgos
== END 2021-10-06 11:20 | disposition home or self-care (01) | DRG 788 ==
PROVIDERS: Admitting Provider Obstetrics & Gynecology; PCP Obstetrics & Gynecology; Referring Provider Obstetrics & Gynecology; Visit Provider Obstetrics & Gynecology
PROC: 10D00Z1 Extraction of Products of Conception, Low, Open Approach (ICD-10-PCS; CPT 59514; principal; 2021-10-04 07:45)
DX: O24.425 Gestational diabetes mellitus in childbirth, controlled by oral hypoglycemic drugs (principal); O69.81X0 Labor and delivery complicated by cord around neck, without compression, not applicable or unspecified; Z3A.39 39 weeks gestation of pregnancy; Z37.0 Single live birth; Z34.83 Encounter for supervision of other normal pregnancy, third trimester
CPT/HCPCS: 36415; 59025; 59050; 59510; 85014; 85018; 85025; 86850; 86900; 86901; 87635; C9803; G0378; G0379; J0690; J1885; J2274; J2405; J2590

== ENCOUNTER → 2021-12-06 10:44 | Outpatient (CLI) | payer BC, SELFPAY ==
[2021-12-06 13:01] LABS: Glucose Tol Interpretation INTERPRETATION
[2021-12-06 13:08] LABS: Glucose Fasting 116 mg/dL (70-100)
[2021-12-06 14:35] LABS: Glucose 2 Hour 250 mg/dL (70-140)
[2021-12-06 14:37] LABS: Glucose 1 Hour 230 mg/dL (70-170)
== END ==
PROVIDERS: Referring Provider Obstetrics & Gynecology; Visit Provider Obstetrics & Gynecology
DX: O24.419 Gestational diabetes mellitus in pregnancy, unspecified control (principal); Z3A.00 Weeks of gestation of pregnancy not specified
CPT/HCPCS: 36415; 82951; 82952

== ENCOUNTER → 2024-02-14 13:07 | Outpatient (CLI) | payer BC, SELFPAY ==
[2024-02-14 13:52] LABS: Add Manual Diff / Slide Review NO; Basophils Absolute Auto 0 /uL (0-100); Basophils Percent Auto 0.8 % (0-2); Eosinophils Absolute Auto 100 /uL (0-450); Eosinophils Percent Auto 0.9 % (2-4); Hematocrit 38.4 % (36-46); Hemoglobin 12.8 g/dL (12.0-16.0); Lymphocytes Absolute Auto 2100 /uL (1100-4500); Mean Corpuscular HGB Conc 33.5 % (30-36); Mean Corpuscular Hemoglobin 30.7 PG (26-34); Mean Corpuscular Volume 91.6 fL (80-100); Monocytes Absolute Auto 500 /uL (0-900); Monocytes Percent Auto 7.3 % (3-14); Neutrophils Absolute Auto 3800 /uL (1500-7000); Platelet Count 365 X10^3/uL (150-400); Red Blood Cell Count 4.19 X10^6/uL (4.0-5.2); Red Cell Distribution Width 12.5 % (11.6-14.8); White Blood Cell Count 6.4 X10^3/uL (4.5-11.0)
[2024-02-14 14:11] LABS: Alanine Aminotransferase 19 IU/L (<35); Albumin 4.6 g/dL (3.5-5.0); Albumin Globulin Ratio 1.6 (1.0-2.8); Alkaline Phosphatase 51 U/L (38-126); Aspartate Aminotransferase 27 IU/L (14-36); BUN Creatinine Ratio 19.6 (6-22); Bilirubin Total 0.6 mg/dL (0.2-1.3); Blood Urea Nitrogen 11 mg/dL (7-17); Calcium 9.6 mg/dL (8.4-10.2); Carbon Dioxide 24 mmol/L (22-32); Chloride 105 mmol/L (98-107); Estimated Glomerular Filt Rate > 60 mL/min (>60); Globulin 2.8 g/dL (1.7-4.1); Glucose 102 mg/dL (70-100); HEMOLYSIS < 15 (0-50); Potassium 4.4 mmol/L (3.4-5.1); Sodium 137 mmol/L (137-145); Total Protein 7.4 g/dL (6.3-8.2)
== END ==
LOC: LAB 13:08
PROVIDERS: PCP Family Medicine; Referring Provider Family Medicine; Visit Provider Family Medicine
DX: Z13.1 Encounter for screening for diabetes mellitus (principal)
CPT/HCPCS: 36415; 80053; 83036; 85025